=== PATIENT | male | born 1995 | race Hispanic/Latino ===

== ENCOUNTER 2016-10-15 17:54 | Observation (INO) | payer OTHER ==
[2016-10-15] MEDS ORDERED: Sodium Chloride 0.9% 1,000 ML IV ONE (18:47)
[2016-10-15] MEDS ORDERED: Sodium Chloride 0.9% 1,000 ML ONE (18:52)
--- NOTE | 2016-10-15 19:38 | C.PDOC ---
History Of Present Illness 21 year old male presents to the ED after being sent by Dr. Srivastava (ENT) for treatment for a left sided peritonsillar abscess. Patient was seen and had the abscess drained by Dr. Srivastava prior to my assessment. He had no further complaints. Time Seen by Provider: 10/15/16 19:08 Chief Complaint (Nursing): ENT Problem History Per: Patient History/Exam Limitations: None Onset/Duration Of Symptoms: Days Current Symptoms Are (Timing): Still Present Past Medical History Reviewed: Historical Data, Nursing Documentation, Vital Signs Vital Signs: Last Vital Signs Temp 100.2 F H 10/15/16 19:35 Pulse 107 H 10/15/16 19:35 Resp 18 10/15/16 19:35 BP 120/77 10/15/16 19:35 Pulse Ox 97 10/15/16 19:43 - Medical History PMH: No Chronic Diseases Family History: States: Unknown Family Hx - Social History Hx Alcohol Use: Yes Hx Substance Use: No - Immunization History Hx Influenza Vaccination: Yes Review Of Systems Except As Marked, All Systems Reviewed And Found Negative. ENT: Positive for: Throat Pain (+Peritonsillar abscess) Physical Exam - Physical Exam Appears: Non-toxic, No Acute Distress Skin: Normal Color, Warm, Dry Head: Atraumatic, Normacephalic Oral Mucosa: Moist Throat: Erythema Chest: Symmetrical Respiratory: No Decreased Breath Sounds Neurological/Psych: Oriented x3, Normal Speech, Normal Cognition ED Course And Treatment - Laboratory Results Result Diagrams: 10/15/16 19:53 10/15/16 19:53 O2 Sat by Pulse Oximetry: 97 (Room air) Pulse Ox Interpretation: Normal Medical Decision Making Medical Decision Making: Plan: -Blood work -Clindamycin -Decadron -IV fluids Progress: 830: case discussed with dr srivastava, request aida obs accepted by dr whitney. Disposition - Disposition Disposition: HOSPITALIZED Disposition Time: 20:25 Condition: STABLE - Clinical Impression Clinical Impression: Peritonsillar abscess - Scribe Statement The provider has reviewed the documentation as recorded by the Scribe Romero Miranda. Provider Attestation: All medical record entries made by the Scribe were at my direction and personally dictated by me. I have reviewed the chart and agree that the record accurately reflects my personal performance of the history, physical exam, medical decision making, and the department course for this patient. I have also personally directed, reviewed, and agree with the discharge instructions and disposition. Decision To Admit - Pt Status Changed To: Hospital Disposition Of: Observation - . Bed Request Type: Regular Admitting Physician: Davon Whitney Patient Diagnosis: Peritonsillar abscess
[2016-10-15] MEDS ORDERED: Morphine 4 MG/ML VIAL ONE (19:57)
[2016-10-15] MEDS ORDERED: Dexamethasone 4 mg/1 ml ONE (19:58)
[2016-10-15 19:59] LABS: BASO % 0.2 % (0.0-2.0); EOS # 0.1 K/uL (0.0-0.7); EOS % 0.3 % (0.0-4.0); HEMATOCRIT 41.1 % (35.0-51.0); LYMPH # 0.7 K/uL (1.0-4.3); LYMPH % 4.1 % (20.0-40.0); MEAN CELL VOLUME 86.6 fL (80.0-94.0); MEAN CORPUSCULAR HEMOGLOBIN 28.5 pg (27.0-31.0); MEAN CORPUSCULAR HGB CONC 32.9 g/dL (33.0-37.0); MEAN PLATELET VOLUME 7.4 fL (7.2-11.7); MONO # 1.3 K/uL (0.0-0.8); MONO % 7.5 % (0.0-10.0); PLATELET COUNT 281 K/uL (130-400); RED CELL DISTRIBUTION WIDTH 12.7 % (11.5-14.5); WHITE BLOOD COUNT 17.5 K/uL (4.8-10.8)
[2016-10-15 20:05] LABS: INR 1.3
[2016-10-15 20:08] LABS: CHLORIDE 96 mmol/L (98-107); SODIUM 137 mmol/L (132-148)
[2016-10-15 20:10] LABS: BILIRUBIN,TOTAL 0.8 mg/dL (0.2-1.3); GFR AFRICAN-AMERICAN > 60
[2016-10-15 20:11] LABS: ALKALINE PHOSPHATASE 66 U/L (38-126); ALT/SGPT 32 U/L (21-72); AST/SGOT 43 U/L (17-59); BLOOD UREA NITROGEN 12 mg/dL (9-20); CALCIUM 9.4 mg/dl (8.6-10.4); CARBON DIOXIDE 24 mmol/L (22-30); GLUCOSE,RANDOM 97 mg/dL (75-110); TOTAL PROTEIN 8.7 g/dL (6.3-8.3)
[2016-10-15 20:52] LABS: BASOPHIL 1 % (0-2); EOSINOPHIL 1 % (0-4); NEUTROPHIL 88 % (50-75); TOTAL CELLS COUNTED 100
[2016-10-15 20:53] LABS: LARGE PLATELETS PRESENT
--- NOTE | 2016-10-15 21:08 | OP ---
PROCEDURE DATE: 10/15/2016 PREOPERATIVE DIAGNOSIS: Peritonsillar abscess, left. POSTOPERATIVE DIAGNOSIS: Peritonsillar abscess, left. PROCEDURE: Incision and drainage of left peritonsillar abscess. SIGNIFICANT FINDINGS: Left peritonsillar abscess. DESCRIPTION OF PROCEDURE: The patient was placed in a seated position. The left peritonsillar area was injected with lidocaine with epinephrine. Incision was made in the left peritonsillar area using a #11 blade. Blunt dissection was done. Pus was noted coming out. Clamp was used to break up all the loculations. Bleeding was controlled with time. The patient tolerated the procedure well. Walter Shea MD cc: [id number] TT: 10/15/2016 21:07:38 kayode
[2016-10-15 22:43] VITALS: RESP 20
--- NOTE | 2016-10-16 00:41 | CP.PCM.HP ---
<Sandra Calderon - Last Filed: 10/16/16 00:10> History of Present Illness - History of Present Illness History of Present Illness: CC: "Left neck swelling, pain, and dysphagia" HPI: Pt is a 21M who presents to the emergency department complaining of left submandibular/neck swelling and severe pain. Patient states he went to an urgent care center on Friday by his residence in [place] for evaluation of two weeks of "cold symptoms," throat pain, and thick phlegm. Patient was recommended to use [id number] Mucinex, which did not relieve his symptoms. He notes the pain became increasingly worse on Friday and Friday. Patient noticed difficulty with swallowing liquids as well as left facial and submandibular swelling, fever, chills, and headache. He also states he had pain to his left ear but denies tinnitus, discharge, or decreased hearing. Patient notes he was unable to sleep due to thick mucous secretions he is unable to expectorate. Patient tried taking Tylenol and Advil for the pain but it did not alleviate symptoms, however, it helped to control his temperature. He went to an Urgent care center where he was diagnosed with peritonsillar abscess and started on Amoxicillin/Clavulanic acid for one day. Symptoms worsened despite antibiotic treatment and patient was informed by Urgent Care to come to [facility] for immediate management. Patient reports he does not have a history of previous ear, nose, throat, or sinus infections. He does admit to personal history of seasonal allergies and atopic dermatitis and family history significant for asthma. Patient denies other symptoms including confusion, dizziness, change in vision, chest pain, palpitations, shortness of breath, inability to talk, nausea, vomiting, abdominal pain, constipation, diarrhea, and urinary symptoms. ENT, Dr. Shea, came to evaluate the patient in the emergency department and performed bedside incision and drainage, which was notable for pus. PMH: seasonal allergies, atopic dermatitis Medications: Mucinex, Tylenol, Advil, [place] Allergies: NKDA Family Hx: Asthma Surgical Hx: Cardiac Ablation (2003) Social: Denies tobacco use and illicit drug use. Drinks alcohol socially. Present on Admission - Present on Admission Any Indicators Present on Admission: No History of DVT/PE: No History of Uncontrolled Diabetes: No Urinary Catheter: No Decubitus Ulcer Present: No Review of Systems - Constitutional Constitutional: Chills, Fever, Headache, Weight Loss - EENT Eyes: absent: Blurred Vision, Change in Vision Ears: Ear Pain, Other (L ear pain) Nose/Mouth/Throat: Epistaxis, Sinus Pressure, Change in Voice, Odynophagia, Sore Throat, Facial Pain, Neck Pain - Cardiovascular Cardiovascular: absent: Chest Pain, Dyspnea - Respiratory Respiratory: Chest Congestion. absent: Cough, Dyspnea, Dyspnea on Exertion - Gastrointestinal Gastrointestinal: Dysphagia. absent: Abdominal Pain, Constipation, Diarrhea, Nausea, Vomiting - Genitourinary Genitourinary: absent: Change in Urinary Stream, Difficulty Urinating - Musculoskeletal Musculoskeletal: absent: Muscle Cramps, Muscle Weakness - Integumentary Integumentary: absent: Changing Lesions, New Lesions - Neurological Neurological: Headaches. absent: Dizziness, Numbness, Weakness - Psychiatric Psychiatric: absent: Anxiety, Depression Past Patient History - Past Social History Smoking Status: Never Smoked - CARDIAC Hx Cardiac Disorders: Yes Other/Comment: CARDIAC ABLATION - HEENT Other/Comment: strep throat - MUSCULOSKELETAL/RHEUMATOLOGICAL Hx Falls: No - PSYCHIATRIC Hx Anxiety: Yes Hx Substance Use: No - SURGICAL HISTORY Hx Surgeries: Yes Other/Comment: CARDIAC ABLATION - ANESTHESIA Hx Anesthesia: Yes Hx Anesthesia Reactions: No Meds Allergies/Adverse Reactions: Allergies Allergy/AdvReac Type Severity Reaction Status Date / Time No Known Allergies Allergy Verified 10/15/16 18:39 Physical Exam - Constitutional Appears: Non-toxic, No Acute Distress Additional comments: vibratory voice - Head Exam Head Exam: ATRAUMATIC. absent: NORMAL INSPECTION Additional comments: left facial swelling and pain to palpation - Eye Exam Eye Exam: EOMI, Normal appearance, PERRL - ENT Exam ENT Exam: Mucous Membranes Dry Additional comments: enlarged left tonsil, incision present - Neck Exam Additional comments: submandibular swelling and pain to palpation - Respiratory Exam Respiratory Exam: Clear to Auscultation Bilateral, NORMAL BREATHING PATTERN. absent: Rales, Rhonchi, Wheezes - Cardiovascular Exam Cardiovascular Exam: Tachycardia, +S1, +S2. absent: Diastolic murmur, Systolic Murmur - GI/Abdominal Exam GI & Abdominal Exam: Normal Bowel Sounds, Soft. absent: Distended, Firm, Guarding - Extremities Exam Extremities exam: Positive for: normal inspection, pedal pulses present. Negative for: pedal edema, tenderness - Back Exam Back exam: NORMAL INSPECTION - Neurological Exam Neurological exam: Alert, CN II-XII Intact, Oriented x3 - Psychiatric Exam Psychiatric exam: Normal Affect, Normal Mood - Skin Skin Exam: Dry, Normal Color Results - Vital Signs Recent Vital Signs: Last Vital Signs Temp 99 F 10/15/16 22:41 Pulse 101 H 10/15/16 22:41 Resp 20 10/15/16 22:41 BP 110/69 10/15/16 22:41 Pulse Ox 97 10/15/16 22:41 - Labs Result Diagrams: 10/15/16 19:53 10/15/16 19:53 Assessment & Plan - Assessment and Plan (Free Text) Assessment: 1. Left Peritonsillar Abscess s/p incision and drainage febrile 101.8, leukocytosis 17.5 Continue Clindamycin 600 mg IVPB q8H for one day Decadron 10 mg IVP stat given Tylenol 650 mg po q6 PRN for fever Continue on Clear Liquid Diet ENT, Dr. Shea, on case. f/u recs 2. Prophylaxis SCD Zofran 4 mg IVP q6h prn nausea Florastor 250 mg po BID Pepcid 20 mg IVP daily - Date & Time Date: 10/16/16 Time: 01:01 <Davon Whitney P - Last Filed: 10/18/16 20:15> Results - Vital Signs Recent Vital Signs: Last Vital Signs Temp 98.2 F 10/17/16 07:41 Pulse 73 10/17/16 07:41 Resp 20 10/17/16 07:41 BP 105/68 10/17/16 07:41 Pulse Ox 97 10/17/16 07:41 - Labs Result Diagrams: 10/17/16 09:49 10/17/16 10:15 Attending/Attestation - Attestation I have personally seen and examined this patient.: Yes I have fully participated in the care of the patient.: Yes I have reviewed all pertinent clinical information: Yes
[2016-10-16] MEDS: Sodium Chloride 0.9% 1,000 ML IV SCH ×3 (00:43→17:51)
[2016-10-16] MEDS: Clindamycin 600mg/50ml D5W 50 ML IVPB SCH ×3 (04:54→19:19)
[2016-10-16 07:46] LABS: BASO % 0.1 % (0.0-2.0); HEMATOCRIT 37.2 % (35.0-51.0); LYMPH # 0.7 K/uL (1.0-4.3); LYMPH % 4.8 % (20.0-40.0); MEAN CELL VOLUME 85.7 fL (80.0-94.0); MEAN CORPUSCULAR HEMOGLOBIN 29.4 pg (27.0-31.0); MEAN CORPUSCULAR HGB CONC 34.3 g/dL (33.0-37.0); MEAN PLATELET VOLUME 7.7 fL (7.2-11.7); MONO # 0.9 K/uL (0.0-0.8); MONO % 5.7 % (0.0-10.0); PLATELET COUNT 290 K/uL (130-400); RED CELL DISTRIBUTION WIDTH 12.5 % (11.5-14.5); WHITE BLOOD COUNT 15.7 K/uL (4.8-10.8)
[2016-10-16 07:50] LABS: CHLORIDE 100 mmol/L (98-107)
[2016-10-16 07:51] LABS: POTASSIUM 4.3 mmol/L (3.6-5.2); SODIUM 143 mmol/L (132-148)
[2016-10-16 07:53] LABS: ALB/GLOB RATIO 1.1 (1.0-2.1); ALKALINE PHOSPHATASE 68 U/L (38-126); AST/SGOT 21 U/L (17-59); BILIRUBIN,TOTAL 0.4 mg/dL (0.2-1.3); CARBON DIOXIDE 24 mmol/L (22-30); GFR AFRICAN-AMERICAN > 60; TOTAL PROTEIN 7.7 g/dL (6.3-8.3)
[2016-10-16 07:54] LABS: ALT/SGPT 26 U/L (21-72); BLOOD UREA NITROGEN 14 mg/dL (9-20); CALCIUM 9.2 mg/dl (8.6-10.4); GLUCOSE,RANDOM 134 mg/dL (75-110); MAGNESIUM 2.1 mg/dL (1.6-2.3)
[2016-10-16 08:50] LABS: NEUTROPHIL 88 % (50-75); TOTAL CELLS COUNTED 100
--- NOTE | 2016-10-16 09:43 | CP.PCM.PN ---
<Lore Martinez - Last Filed: 10/16/16 15:25> Subjective - Date & Time of Evaluation Date of Evaluation: 10/16/16 Time of Evaluation: 08:00 - Subjective Subjective: Internal medicine progress note for X - Lore Martinez, PGY-1 Pt S & E at bedside. Pt reports sore throat, julio cesar when swallowing, copious mucus secretion- requiring suctioning. Slept sitting up last night. Diaphoretic overnight, subjective fevers/chills. Tolerating liquid diet. Denies N/V, SOB, CP, abdominal pain. Objective - Vital Signs/Intake and Output Vital Signs (last 24 hours): Temp Pulse Resp BP Pulse Ox 98.0 F 82 20 104/68 98 10/16/16 07:44 10/16/16 07:44 10/16/16 07:44 10/16/16 07:44 10/16/16 07:44 Intake and Output: 10/16/16 10/16/16 06:59 18:59 Intake Total 750 Balance 750 - Medications Medications: Current Medications Acetaminophen (Tylenol 325mg Tab) 650 mg PO Q6 PRN PRN Reason: Fever >100.4 F Famotidine (Pepcid) 20 mg IVP DAILY [facility] Clindamycin Phosphate (Cleocin) 50 mls @ 100 mls/hr IVPB Q8H [facility] Last Admin: 10/16/16 04:54 Dose: 100 mls/hr Sodium Chloride (Sodium Chloride 0.9%) 1,000 mls @ 100 mls/hr IV .Q10H [facility] Last Admin: 10/16/16 00:43 Dose: 100 mls/hr Ondansetron HCl (Zofran Inj) 4 mg IVP Q6 PRN PRN Reason: Nausea/Vomiting Pneumococcal Polyvalent Vaccine (Pneumovax 23 Vaccine) 0.5 ml IM .ONCE ONE Stop: 10/17/16 10:01 Saccharomyces Boulardii (Florastor) 250 mg PO BID [facility] - Labs Labs: 10/16/16 07:10 10/16/16 07:10 PT 14.9 SECONDS (9.7-12.2) H 10/15/16 19:53 INR 1.3 10/15/16 19:53 APTT 28 SECONDS (21-34) 10/15/16 19:53 - Constitutional Appears: Non-toxic, No Acute Distress - Head Exam Head Exam: ATRAUMATIC, NORMAL INSPECTION, NORMOCEPHALIC - Eye Exam Eye Exam: EOMI, Normal appearance, PERRL Pupil Exam: NORMAL ACCOMODATION, PERRL - ENT Exam ENT Exam: Mucous Membranes Moist. absent: Normal Oropharynx (Left oropharynx with erythema and swelling, visible incision site from I & D) - Neck Exam Neck Exam: Full ROM, Normal Inspection - Respiratory Exam Respiratory Exam: Clear to Ausculation Bilateral, NORMAL BREATHING PATTERN. absent: Accessory Muscle Use, Chest Wall Tenderness, Rhonchi, Wheezes, Stridor - Cardiovascular Exam Cardiovascular Exam: REGULAR RHYTHM, +S1, +S2 - GI/Abdominal Exam GI & Abdominal Exam: Soft, Normal Bowel Sounds. absent: Tenderness - Extremities Exam Extremities Exam: Full ROM, Normal Inspection - Back Exam Back Exam: NORMAL INSPECTION - Neurological Exam Neurological Exam: Alert, Awake, CN II-XII Intact, Oriented x3 - Psychiatric Exam Psychiatric exam: Normal Affect, Normal Mood - Skin Skin Exam: Dry, Intact, Normal Color, Warm Assessment and Plan - Assessment and Plan (Free Text) Assessment: Left Peritonsillar Abscess s/p incision and drainage w/ENT febrile 101.8 over last 24H Leukocytosis 15.7 from 17.5 Cont Clindamycin 600 mg IVPB q8H for one day Tylenol 650 mg po q6 PRN for fever Advanced to full liquid diet Ice chips ordered Advance diet as tolerated ENT following- cleared patient for discharge home Prophylaxis SCD Zofran 4 mg IVP q6h prn nausea Florastor 250 mg po BID Pepcid 20 mg IVP daily Dispo Ok to shower ice to left face/neck Possible d/c home tomorrow if leukocytosis resolving DW attending <Nik Alexis - Last Filed: 10/16/16 17:10> Objective - Vital Signs/Intake and Output Vital Signs (last 24 hours): Temp Pulse Resp BP Pulse Ox 97.8 F 83 20 106/67 97 10/16/16 15:00 10/16/16 15:00 10/16/16 15:00 10/16/16 15:00 10/16/16 15:00 Intake and Output: 10/16/16 10/16/16 06:59 18:59 Intake Total 750 1200 Balance 750 1200 - Medications Medications: Current Medications Acetaminophen (Tylenol 325mg Tab) 650 mg PO Q6 PRN PRN Reason: Fever >100.4 F Famotidine (Pepcid) 20 mg IVP DAILY [facility] Last Admin: 10/16/16 10:28 Dose: 20 mg Clindamycin Phosphate (Cleocin) 50 mls @ 100 mls/hr IVPB Q8H [facility] Last Admin: 10/16/16 13:09 Dose: 100 mls/hr Sodium Chloride (Sodium Chloride 0.9%) 1,000 mls @ 100 mls/hr IV .Q10H [facility] Last Admin: 10/16/16 10:14 Dose: Not Given Ondansetron HCl (Zofran Inj) 4 mg IVP Q6 PRN PRN Reason: Nausea/Vomiting Pneumococcal Polyvalent Vaccine (Pneumovax 23 Vaccine) 0.5 ml IM .ONCE ONE Stop: 10/17/16 10:01 Saccharomyces Boulardii (Florastor) 250 mg PO BID [facility] Last Admin: 10/16/16 10:27 Dose: 250 mg - Labs Labs: 10/16/16 07:10 10/16/16 07:10 PT 14.9 SECONDS (9.7-12.2) H 10/15/16 19:53 INR 1.3 10/15/16 19:53 APTT 28 SECONDS (21-34) 10/15/16 19:53 Attending/Attestation - Attestation I have personally seen and examined this patient.: Yes I have fully participated in the care of the patient.: Yes I have reviewed all pertinent clinical information, including history, physical exam and plan: Yes Notes (Text): Medical Attending: Patient was seen and examined by me. Agree with the above note by the resident. The patient was feeling better. He had tolerated a clear liquid diet just before we came and examined the patient. He denied having new fevers, the WBC is still elevated - but it was decreasing. In the mean time continue with IV abx thank you, if patient does ok with diet and WBC go down further we might discharge him tommorow. thank you
[2016-10-16] MEDS: Saccharomyces Boulardi 250 mg Cap PO SCH ×2 (10:27→17:49)
[2016-10-17] MEDS: Clindamycin 600mg/50ml D5W 50 ML IVPB SCH ×2 (03:05→12:24)
[2016-10-17] MEDS: Sodium Chloride 0.9% 1,000 ML IV SCH (05:45)
[2016-10-17 07:42] VITALS: BP 105/68; PULSE 73; TEMP 98.2; O2SAT 97
[2016-10-17 09:56] LABS: BASO % 0.4 % (0.0-2.0); EOS # 0.2 K/uL (0.0-0.7); EOS % 2.8 % (0.0-4.0); HEMATOCRIT 36.5 % (35.0-51.0); LYMPH # 1.5 K/uL (1.0-4.3); LYMPH % 20.2 % (20.0-40.0); MEAN CELL VOLUME 86.8 fL (80.0-94.0); MEAN CORPUSCULAR HEMOGLOBIN 29.8 pg (27.0-31.0); MEAN CORPUSCULAR HGB CONC 34.4 g/dL (33.0-37.0); MEAN PLATELET VOLUME 7.3 fL (7.2-11.7); MONO # 0.7 K/uL (0.0-0.8); MONO % 8.8 % (0.0-10.0); RED CELL DISTRIBUTION WIDTH 12.5 % (11.5-14.5)
[2016-10-17] MEDS ORDERED: Pneumococcal 23-Valent Vaccine IM ONE (10:00)
[2016-10-17 10:01] LABS: WHITE BLOOD COUNT 7.4 K/uL (4.8-10.8)
[2016-10-17 10:26] LABS: CHLORIDE 101 mmol/L (98-107); SODIUM 144 mmol/L (132-148)
[2016-10-17 10:29] LABS: ALKALINE PHOSPHATASE 52 U/L (38-126); AST/SGOT 26 U/L (17-59); BILIRUBIN,TOTAL 0.3 mg/dL (0.2-1.3); BLOOD UREA NITROGEN 10 mg/dL (9-20); CARBON DIOXIDE 28 mmol/L (22-30); GFR AFRICAN-AMERICAN > 60; GLUCOSE,RANDOM 101 mg/dL (75-110)
[2016-10-17 10:30] LABS: ALT/SGPT 34 U/L (21-72); CALCIUM 9.3 mg/dl (8.6-10.4)
[2016-10-17] MEDS: Saccharomyces Boulardi 250 mg Cap PO SCH (10:40)
--- NOTE | 2016-10-17 13:49 | CP.PCM.DIS ---
<MichelleLore - Last Filed: 10/17/16 13:46> Provider - Provider Date of Admission: 10/15/16 20:24 Attending physician: Davon Whitney MD Primary care physician: Unknown- pt from [place] Consults: YOLI Shea Time Spent in preparation of Discharge (in minutes): 60 Hospital Course - Lab Results Lab Results: Most Recent Lab Values WBC 7.4 K/uL (4.8-10.8) D 10/17/16 09:49 RBC 4.20 Mil/uL (4.40-5.90) L 10/17/16 09:49 Hgb 12.5 g/dL (12.0-18.0) 10/17/16 09:49 Hct 36.5 % (35.0-51.0) 10/17/16 09:49 MCV 86.8 fL (80.0-94.0) 10/17/16 09:49 MCH 29.8 pg (27.0-31.0) 10/17/16 09:49 MCHC 34.4 g/dL (33.0-37.0) 10/17/16 09:49 RDW 12.5 % (11.5-14.5) 10/17/16 09:49 Plt Count 253 K/uL (130-400) 10/17/16 09:49 MPV 7.3 fL (7.2-11.7) 10/17/16 09:49 Neut % (Auto) 67.8 % (50.0-75.0) 10/17/16 09:49 Lymph % (Auto) 20.2 % (20.0-40.0) 10/17/16 09:49 [place] % (Auto) 8.8 % (0.0-10.0) 10/17/16 09:49 Eos % (Auto) 2.8 % (0.0-4.0) 10/17/16 09:49 Baso % (Auto) 0.4 % (0.0-2.0) 10/17/16 09:49 Neut # 5.0 K/uL (1.8-7.0) 10/17/16 09:49 Lymph # 1.5 K/uL (1.0-4.3) 10/17/16 09:49 [place] # 0.7 K/uL (0.0-0.8) 10/17/16 09:49 Eos # 0.2 K/uL (0.0-0.7) 10/17/16 09:49 Baso # 0.0 K/uL (0.0-0.2) 10/17/16 09:49 Neutrophils % (Manual) 88 % (50-75) H 10/16/16 07:10 Band Neutrophils % 1 % (0-2) 10/16/16 07:10 Lymphocytes % (Manual) 5 % (20-40) L 10/16/16 07:10 Monocytes % (Manual) 6 % (0-10) 10/16/16 07:10 Eosinophils % (Manual) 1 % (0-4) 10/15/16 19:53 Basophils % (Manual) 1 % (0-2) 10/15/16 19:53 Toxic Granulation Present 10/15/16 19:53 Platelet Estimate Normal (NORMAL) 10/16/16 07:10 Large Platelets Present 10/15/16 19:53 RBC Morphology Normal 10/16/16 07:10 Microcytosis (manual) Slight 10/15/16 19:53 Tear Drop Cells Slight 10/15/16 19:53 PT 14.9 SECONDS (9.7-12.2) H 10/15/16 19:53 INR 1.3 10/15/16 19:53 APTT 28 SECONDS (21-34) 10/15/16 19:53 Sodium 144 mmol/L (132-148) 10/17/16 10:15 Potassium 4.0 mmol/L (3.6-5.2) 10/17/16 10:15 Chloride 101 mmol/L (98-107) 10/17/16 10:15 Carbon Dioxide 28 mmol/L (22-30) 10/17/16 10:15 Anion Gap 19 (10-20) 10/17/16 10:15 BUN 10 mg/dL (9-20) 10/17/16 10:15 Creatinine 0.8 MG/DL (0.8-1.5) 10/17/16 10:15 Est GFR ( Amer) > 60 10/17/16 10:15 Est GFR (Non-Af Amer) > 60 10/17/16 10:15 Random Glucose 101 mg/dL (75-110) 10/17/16 10:15 Calcium 9.3 mg/dl (8.6-10.4) 10/17/16 10:15 Magnesium 2.1 mg/dL (1.6-2.3) 10/16/16 07:10 Total Bilirubin 0.3 mg/dL (0.2-1.3) 10/17/16 10:15 AST 26 U/L (17-59) 10/17/16 10:15 ALT 34 U/L (21-72) 10/17/16 10:15 Alkaline Phosphatase 52 U/L (38-126) 10/17/16 10:15 Total Protein 8.0 g/dL (6.3-8.3) 10/17/16 10:15 Albumin 4.0 g/dL (3.5-5.0) 10/17/16 10:15 Globulin 4.0 gm/dL (2.2-3.9) H 10/17/16 10:15 Albumin/Globulin Ratio 1.0 (1.0-2.1) 10/17/16 10:15 - Hospital Course Hospital Course: Pt is a 21M who presents to the emergency department complaining of left submandibular/neck swelling and severe pain. Patient states he went to an urgent care center on Friday by his residence in [place] for evaluation of two weeks of "cold symptoms," throat pain, and thick phlegm. Patient was recommended to use [id number] Mucinex, which did not relieve his symptoms. He notes the pain became increasingly worse on Friday and Friday. Patient noticed difficulty with swallowing liquids as well as left facial and submandibular swelling, fever, chills, and headache. He also states he had pain to his left ear but denies tinnitus, discharge, or decreased hearing. Patient notes he was unable to sleep due to thick mucous secretions he is unable to expectorate. Patient tried taking Tylenol and Advil for the pain but it did not alleviate symptoms, however, it helped to control his temperature. He went to an Urgent care center where he was diagnosed with peritonsillar abscess and started on Amoxicillin/Clavulanic acid for one day. Symptoms worsened despite antibiotic treatment and patient was informed by Urgent Care to come to [facility] for immediate management. Patient reports he does not have a history of previous ear, nose, throat, or sinus infections. He does admit to personal history of seasonal allergies and atopic dermatitis and family history significant for asthma. Patient denies other symptoms including confusion, dizziness, change in vision, chest pain, palpitations, shortness of breath, inability to talk, nausea, vomiting, abdominal pain, constipation, diarrhea, and urinary symptoms. Pt seen/evaluated by ENT w/I & D of peritonsillar abscess. Pt placed on liquid diet with advancement to soft foots - tolerated. Leukocytosis resolved over course of hospitalization with antibiotic administration. Pt cleared for discharge home as per ENT and Dr. Alexis. Diagnoses: peritonsillar abscess Please see EMR for details regarding hospitalization. - Date & Time of H&P Date of H&P: 10/16/16 Time of H&P: 00:10 Discharge Exam - Head Exam Head Exam: ATRAUMATIC, NORMAL INSPECTION, NORMOCEPHALIC - Eye Exam Eye Exam: EOMI, Normal appearance, PERRL Pupil Exam: NORMAL ACCOMODATION, PERRL - ENT Exam ENT Exam: Mucous Membranes Moist. absent: Normal Oropharynx (Left oropharynx with slight swelling -improved, slight erythema -improved) - Neck Exam Neck exam: Full Rom, Normal Inspection, Tenderness (slight tenderness over left lateral neck) - Respiratory Exam Respiratory Exam: Clear to PA & Lateral, NORMAL BREATHING PATTERN, UNREMARKABLE. absent: Accessory Muscle Use, Decreased Breath Sounds, Rales, Rhonchi, Wheezes - Cardiovascular Exam Cardiovascular Exam: REGULAR RHYTHM, +S1, +S2 - GI/Abdominal Exam GI & Abdominal Exam: Normal Bowel Sounds, Soft, Unremarkable. absent: Tenderness - Extremities Exam Extremities exam: full ROM, normal inspection - Neurological Exam Neurological exam: Alert, CN II-XII Intact, Oriented x3 - Psychiatric Exam Psychiatric exam: Normal Affect, Normal Mood - Skin Skin Exam: Dry, Intact, Normal Color, Warm Discharge Plan - Discharge Medications Prescriptions: Clindamycin [Cleocin] 300 mg PO TID #15 cap Saccharomyces Boulardi [Florastor] 250 mg PO TID #15 cap - Follow Up Plan Condition: STABLE Disposition: HOME/ ROUTINE Instructions: Clindamycin (By mouth), Probiotic (By mouth), Peritonsillar Abscess (DC) Additional Instructions: Patient cleared for discharge home as per Dr. Alexis. Please follow up with your primary care physician within 1 week after hospitalization. You are being discharged on an antibiotic for your tonsil infection - please complete the whole prescription. You are also being given a prescription for a probiotic. Please take it in between doses of your antibiotic- it will help decrease the possibility of developing diarrhea. Please return to hospital if you have a recurrence of symptoms. Referrals: Nino Kern DO [Staff Provider] - <Nik Alexis - Last Filed: 10/17/16 15:23> Provider - Provider Date of Admission: 10/15/16 20:24 Attending physician: Davon Whitney MD Hospital Course - Lab Results Lab Results: Most Recent Lab Values WBC 7.4 K/uL (4.8-10.8) D 10/17/16 09:49 RBC 4.20 Mil/uL (4.40-5.90) L 10/17/16 09:49 Hgb 12.5 g/dL (12.0-18.0) 10/17/16 09:49 Hct 36.5 % (35.0-51.0) 10/17/16 09:49 MCV 86.8 fL (80.0-94.0) 10/17/16 09:49 MCH 29.8 pg (27.0-31.0) 10/17/16 09:49 MCHC 34.4 g/dL (33.0-37.0) 10/17/16 09:49 RDW 12.5 % (11.5-14.5) 10/17/16 09:49 Plt Count 253 K/uL (130-400) 10/17/16 09:49 MPV 7.3 fL (7.2-11.7) 10/17/16 09:49 Neut % (Auto) 67.8 % (50.0-75.0) 10/17/16 09:49 Lymph % (Auto) 20.2 % (20.0-40.0) 10/17/16 09:49 [place] % (Auto) 8.8 % (0.0-10.0) 10/17/16 09:49 Eos % (Auto) 2.8 % (0.0-4.0) 10/17/16 09:49 Baso % (Auto) 0.4 % (0.0-2.0) 10/17/16 09:49 Neut # 5.0 K/uL (1.8-7.0) 10/17/16 09:49 Lymph # 1.5 K/uL (1.0-4.3) 10/17/16 09:49 [place] # 0.7 K/uL (0.0-0.8) 10/17/16 09:49 Eos # 0.2 K/uL (0.0-0.7) 10/17/16 09:49 Baso # 0.0 K/uL (0.0-0.2) 10/17/16 09:49 Neutrophils % (Manual) 88 % (50-75) H 10/16/16 07:10 Band Neutrophils % 1 % (0-2) 10/16/16 07:10 Lymphocytes % (Manual) 5 % (20-40) L 10/16/16 07:10 Monocytes % (Manual) 6 % (0-10) 10/16/16 07:10 Eosinophils % (Manual) 1 % (0-4) 10/15/16 19:53 Basophils % (Manual) 1 % (0-2) 10/15/16 19:53 Toxic Granulation Present 10/15/16 19:53 Platelet Estimate Normal (NORMAL) 10/16/16 07:10 Large Platelets Present 10/15/16 19:53 RBC Morphology Normal 10/16/16 07:10 Microcytosis (manual) Slight 10/15/16 19:53 Tear Drop Cells Slight 10/15/16 19:53 PT 14.9 SECONDS (9.7-12.2) H 10/15/16 19:53 INR 1.3 10/15/16 19:53 APTT 28 SECONDS (21-34) 10/15/16 19:53 Sodium 144 mmol/L (132-148) 10/17/16 10:15 Potassium 4.0 mmol/L (3.6-5.2) 10/17/16 10:15 Chloride 101 mmol/L (98-107) 10/17/16 10:15 Carbon Dioxide 28 mmol/L (22-30) 10/17/16 10:15 Anion Gap 19 (10-20) 10/17/16 10:15 BUN 10 mg/dL (9-20) 10/17/16 10:15 Creatinine 0.8 MG/DL (0.8-1.5) 10/17/16 10:15 Est GFR ( Amer) > 60 10/17/16 10:15 Est GFR (Non-Af Amer) > 60 10/17/16 10:15 Random Glucose 101 mg/dL (75-110) 10/17/16 10:15 Calcium 9.3 mg/dl (8.6-10.4) 10/17/16 10:15 Magnesium 2.1 mg/dL (1.6-2.3) 10/16/16 07:10 Total Bilirubin 0.3 mg/dL (0.2-1.3) 10/17/16 10:15 AST 26 U/L (17-59) 10/17/16 10:15 ALT 34 U/L (21-72) 10/17/16 10:15 Alkaline Phosphatase 52 U/L (38-126) 10/17/16 10:15 Total Protein 8.0 g/dL (6.3-8.3) 10/17/16 10:15 Albumin 4.0 g/dL (3.5-5.0) 10/17/16 10:15 Globulin 4.0 gm/dL (2.2-3.9) H 10/17/16 10:15 Albumin/Globulin Ratio 1.0 (1.0-2.1) 10/17/16 10:15 Attending/Attestation - Attestation I have personally seen and examined this patient.: Yes I have fully participated in the care of the patient.: Yes I have reviewed all pertinent clinical information, including history, physical exam and plan: Yes Notes (Text): Medical attending: Patient was seen and examined by me, the above note was reviewed by me and I agree with the above note by medical claims representative. The patient was able to swallow food, he was tolerating a soft bland diet. He still had some tenderness but it improved from before His white blood cell count is also decreased as well. We explained to the patient that he needs to follow-up with his primary care physician in [place]. He will need to continue taking oral clindamycin, as well as oral Flagyl we encouraged the patient to take extra yogurt as well. Thank you very much, Nik Alexis
== END 2016-10-17 15:30 | disposition home or self-care (01) ==
LOC: C.ER 17:54 → C.9E 20:24 → C.3T 21:03
PROVIDERS: ADMIT Internal Medicine; ATTEND Internal Medicine
DX: J36 Peritonsillar abscess (principal); Z23 Encounter for immunization
CPT/HCPCS: 36415 ×2; 42700; 80053 ×3; 83735; 85025 ×3; 85610; 85730; 90471; 90732; 96360; 96365; 96374; 99285; G0378 ×3; J1100; J2270; J7040 ×3